=== PATIENT | male | born 1970 | race Caucasian/White ===

== ENCOUNTER 2021-10-27 15:36 | Emergency (ER) | payer OTHER, SELFPAY ==
[2021-10-27 15:40] VITALS: BP 141/90; PULSE 91; RESP 19; TEMP 36.8; O2SAT 98; BMI 26.4
[2021-10-27 15:50] VITALS: BP 141/90; PULSE 91; RESP 19; TEMP 36.8; O2SAT 98
--- NOTE | 2021-10-27 15:51 | HMH.EDUTC ---
[facility] Disposition Clinical Impression: Abscess Disposition: Home, Self-Care Condition on Discharge: Good Instructions: Boil Additional Instructions: follow up with surgery antibiotics as ordered if worsen or no improvement return Prescriptions: Sulfamethoxazole/Trimethoprim [Bactrim DS tablet] 1 each PO BID 10 Days #20 tab Transmission Status: Pending to [id number] Referrals: Janiya Landa MD [Primary Care Provider] - Jason Smith MD [Staff Physician] - Time of Disposition: 15:54 Medical Decision Making - [place] Inquiry Pt receiving controlled substance: No [facility] HPI - General Chief complaint: Urgent Treatment Center Stated complaint: possible boil on neck Time Seen by Provider: 10/27/21 15:51 Mode of Arrival: Ambulatory Source of Information: Patient Limitations: No Limitations - History of Present Illness Provider Complaint: 51 yr old male presents for a boil on the back of his head for 1 month but becoming sore - Related Data Previous Rx's Medication Instructions Recorded Amoxicillin/Potassium Clav 1 tab PO Q12H 10 Days #20 tab 05/23/19 [Augmentin 875-125 Tablet] predniSONE [Deltasone 10mg tablet] 10 mg PO BID 3 Days #6 tab 05/23/19 Sulfamethoxazole/Trimethoprim 1 each PO BID 10 Days #20 tab 10/27/21 [Bactrim DS tablet] Allergies Allergy/AdvReac Type Severity Reaction Status Date / Time No Known Allergies Allergy Verified 05/23/19 09:57 [facility] History - Hepatitis A Screen Attestation statement:: This patient has been screened for Hepatitis A risk factors. I have reviewed the patient's past medical history: Yes - Social History Alcohol Intake: never Occupational Status: other ROS Obtained: Yes Systems reviewed as appropriate & no additional complaints - Constitutional Constitutional: Reports system reviewed and no additional complaints, except as docu, Denies fatigue - Eyes Eyes: Reports system reviewed and no additional complaints, except as docu, Denies dry eyes - ENT Ears, Nose, Mouth, and Throat: Reports system reviewed and no additional complaints, except as docu, Denies abnormal hearing - Cardiovascular Cardiovascular: Reports system reviewed and no additional complaints, except as docu, Denies chest pain - Respiratory Respiratory: Reports system reviewed and no additional complaints, except as docu, Denies shortness of breath - Gastrointestinal Gastrointestingal: Reports: system reviewed and no additional complaints, except as docu. Denies: abdominal pain - Musculoskeletal Musculoskeletal: Reports system reviewed and no additional complaints, except as docu, Denies abnormal gait - Integumentary/Breasts Skin/Breast: Reports system reviewed and no additional complaints, except as docu, Reports as per HPI, Reports boil - Neurologic Neurologic: Reports system reviewed and no additional complaints, except as docu, Denies dizziness - Endocrine Endocrine: Reports system reviewed and no additional complaints, except as docu, Denies fatigue - Hematologic/Lymphatic Henatologic/Lymphatic: Reports system reviewed and no additional complaints, except as docu, Denies easy bruising - Allergic/Immunologic Allergic/Immunologic: Reports system reviewed and no additional complaints, except as docu, Denies itchy eyes Physical Exam - General General appearance: alert, in no apparent distress - Head Head exam: atraumatic, normocephalic, normal inspection - Eye Eye exam: Present: normal appearance, PERRL, EOMI - ENT ENT exam: Present: normal exam, normal oropharynx, mucous membranes moist, TM's normal bilaterally, normal external ear exam - Neck Neck exam: Present: normal inspection, full ROM, trachea midline. Absent: meningismus, lymphadenopathy - Chest Chest inspection: Present: normal inspection, symmetric chest wall rise. Absent: tenderness - Respiratory Respiratory exam: Present: normal lung sounds bilaterally. Absent: respiratory
== END 2021-10-27 15:53 | disposition home or self-care (01) ==
PROVIDERS: Emergency Provider Nurse Practitioner Family; PCP Family Medicine
DX: L02.12 Furuncle of neck (principal); Z79.899 Other long term (current) drug therapy
CPT/HCPCS: 99212; G0463

== ENCOUNTER → 2021-10-30 10:18 | Outpatient (CLI) | payer OTHER, SELFPAY ==
[2021-10-30 10:21] LABS: MANUAL DIFFERENTIAL MANUAL DIFFERENTIAL (MANUAL DIFF)
[2021-10-30 10:42] LABS: Basophils # 0.1 K/mm3 (0-0.2); Basophils % 1.1 % (0.1-2.0); Eosinophils # 0.1 K/mm3 (0.0-0.4); Eosinophils % 1.9 % (0.1-12.0); Hematocrit 47.6 % (42.0-52.0); Hemoglobin 15.6 g/dL (14.1-18.0); Lymphocytes # 2.1 K/mm3 (0.7-4.5); Lymphocytes % 32.8 % (10-50); Mean Corpuscular HGB Conc 32.7 g/dL (31.8-35.4); Mean Corpuscular Hemoglobin 32.1 pg (27.0-31.2); Monocytes # 0.5 K/mm3 (0.1-1.0); Monocytes % 8.1 % (1.7-9.3); Neutrophils # 3.6 K/mm3 (1.8-7.8); Neutrophils % 56.1 % (37.0-80.0); Platelet Count 248 K/mm3 (142-424); Red Blood Count 4.86 M/mm3 (4.60-6.20); Red Cell Distribution Width 12.9 % (11.5-17.5); White Blood Count 6.4 K/mm3 (4.8-10.8)
[2021-10-30 10:56] LABS: Chloride 102 mmol/L (98-107)
[2021-10-30 10:57] LABS: Potassium 4.1 mmoL/L (3.5-5.1); Sodium 138 mmol/L (136-145)
[2021-10-30 11:00] LABS: Anion Gap 14.1 mEq/L (5-15); Blood Urea Nitrogen 14 mg/dl (9-20); Calcium 9.1 mg/dl (8.4-10.2); Carbon Dioxide 26 mmol/L (22.0-30.0); Estimated Glomerular Filt Rate 79 ml/min (>60); GFR (African American) 96 ML/MIN (>60); Glucose 117 mg/dl (74-100)
[2021-10-30 11:27] LABS: Eosinophils % 2 % (0-3); Lymphocytes % 29 % (10-50); Monocytes % 10 % (2-9); Neutrophils % 59 % (42-76); Total Cells Counted 100
[2021-10-30 11:28] LABS: Anisocytosis 1+; Macrocytosis 1+; Platelet Estimate Normal
== END ==
PROVIDERS: Visit Provider Surgery
DX: Z01.812 Encounter for preprocedural laboratory examination (principal); Z11.52 Encounter for screening for COVID-19; L02.91 Cutaneous abscess, unspecified
CPT/HCPCS: 36415; 80048; 85007; 85014; 85018; 85048; 85049; C9803; U0003; U0005

== ENCOUNTER 2021-11-01 06:30 | Day surgery (SDC) | payer OTHER, SELFPAY ==
[2021-11-01] VITALS (12 sets, daily range): BP systolic 109–127; BP diastolic 64–97; PULSE 62–97; RESP 14–18; TEMP 36.1–36.9; O2SAT 14–98; BMI 26.4; BMI 28.8
--- NOTE | 2021-11-01 06:57 | P.PN_ITS ---
[facility] Anesthesia Checklist - Patient Identification Patient Identification: Arm Band - Structural Data Admitted From: Home Planned Operative Procedure/s: Excision lesion Consent for Planned Operative Procedure(s) Verified: Yes - NPO Status Verified Time NPO: 00:00 - Airway Assessment C-Spine Mobility Assessed: Yes TMJ Mobility Assessed: Yes Dentition: Good Dentition - Neurological Assessment Level of Consciousness: Awake Hx Seizures: No Numbness or tingling in extremities: No - Anesthesia Plan Anesthesia Risk discussed: Yes Anesthesia Plan: Verified ASA Class: II Anesthesia Type: General [facility] History I have reviewed the patient's past medical history: Yes Medical History: Reports:: Gastroesophageal Reflux Disease(GERD) *Have you ever received a pneumonia vaccine?: No *Have you received a flu vaccine this season?: Yes Anesthesia experience/problems:: None - *Social History Smoking Status: Never smoker Alcohol Intake: never Substance Use Type: denies use *Occupational Status:: other *Travel in the last 8 weeks: None Family Hx:: Unable to obtain
--- NOTE | 2021-11-01 07:06 | ECG_ITS ---
APPROVED REPORT Exam: Resting ECG HR:75 bpm ECG Measurements Heart Rate 75 AXES MI 172 P 51 QRSd 89 QRS -29 QT 378 T 36 QTc 406 Conclusion SINUS RHYTHM BORDERLINE LEFT AXIS DEVIATION [QRS AXIS < -20] BORDERLINE ECG UNCONFIRMED REPORT Electronically signed by : Adal Mina MD 11/02/2021 16:01:49
--- NOTE | 2021-11-01 07:42 | P.OP_ITS ---
Date of procedure: 11/01/21 Pre-op Diagnosis:: Posterior neck/scalp carbuncle Post-op Diagnosis:: Same Procedure performed:: Incision and drainage/debridement of posterior neck/scalp carbuncle Surgeon:: Leonel Khoury MD [employer] AGENT:: Reva Hoffman Anesthesia: LMA Estimated blood loss (mL): 15 Operative findings:: Central coalescence/purulent cavity Operative note:: After informed consent was obtained the patient was taken to the operating room and placed in the supine position. General anesthesia with laryngeal mask airwa y was achieved. He was then transferred to the right lateral decubitus position. His posterior neck/scalp was prepped and draped in a sterile fashion. After infiltration local anesthetic an elliptical incision around the central portion of the carbuncle was made with electrocautery. A central coalescent/purulent cavity was entered. The cavity was evacuated. Minimal overlying debridement of the carbuncle margin was then completed with electrocautery. Electrocautery was utilized to achieve hemostasis. The wound was packed with moistened Kerlix and the entire region was infiltrated with 1% lidocaine. Dressings were applied and the patient was transferred to recovery in stable condition. Condition: stable Disposition: PACU Specimens:: None Complications:: No immediate
--- NOTE | 2021-11-01 07:53 | P.PN_ITS ---
[facility] Anesthesia Record Part I Intake, IV Amount: 500 Estimated blood loss (mL): 10 Urine output (mL): 0 Blood Pressure: 124/76 SaO2: 14 Pulse Rate: 77 Respiratory Rate: 14 Temperature: 97.3 F Patient is:: Drowsy, Oral/Nasal airway Stable to PACU at:: 07:51
--- NOTE | 2021-11-01 08:50 | SUR.PHASEII ---
Spoke w/ Dr. Khoury d/t pt's concern that he is not able to take narcotics r/t his job. MD gave verbal order for 15 mg Toradol IV x1 now, if favorable results gave prescription for 10 mg Toradol PO Q6H scheduled #15. Prior to admin of Toradol pt rated pain to post neck 8/10. Upon DC pt rates pain 2/10. Favorable results achieved, script called in to Josh for Toradol. Educated pt's on dry dressing changes BID, verbalized understanding.
--- NOTE | 2021-11-04 13:02 | HMH.ANESII ---
[facility] Anesthesia Record Part II Discharge Time: 08:31 Destination: [facility] PACU nurse assessment reviewed?: Yes Patient Condition:: Good Anesthesia Complications:: None Swallowing reflex intact?: Yes Cyanosis?: No Blood Pressure: 127/80 Pulse Rate: 68 Temperature: 97 F Mental Status: Alert & Oriented Pain level:: 0 Nausea and/or vomitting:: None Intake, IV Amount: 1,000
[2021-11-04 13:03] VITALS: BP 127/80; PULSE 68; TEMP 36.1
== END 2021-11-01 09:30 | disposition home or self-care (01) ==
LOC: OR 06:31
PROVIDERS: PCP Family Medicine; Visit Provider Surgery
PROC: (CPT 10061; principal; 2021-11-01 07:30)
DX: L02.13 Carbuncle of neck (principal); K21.9 Gastro-esophageal reflux disease without esophagitis; Z79.899 Other long term (current) drug therapy
CPT/HCPCS: 10061; 93005